=== PATIENT | male | born 1960 | race Caucasian/White ===

== ENCOUNTER 2016-09-03 18:22 | Observation (INO) | payer OTHER ==
[~2016-09-03] VITALS: Ht 160 cm; Wt 64.9 kg
[2016-09-03 18:24] VITALS: Ht 160 cm; Wt 64.9 kg
--- NOTE | 2016-09-03 19:16 | ERA ---
ER Documentation Chief Complaint Date/Time DATE: 09/03/16 TIME: 19:15 Chief Complaint PALPITAIONS AFTER TAKING PREDNISOLONE HPI 56-year-old male with a history of hypertension presents with palpitations and chest pain 1 day. Patient reports intermittent chest pain over the last day lasting 5-10 minutes in the center of his chest nonradiating. The pain is nonexertional, nonpleuritic, non-tearing, non-positional. It is associated with mild dyspnea last seconds. No associated nausea, vomiting, diaphoresis. He reports feeling some associated palpitations over the last day and it is what ultimately brought him in. He reports being on prednisone for allergic rhinitis. Denies any drug use. No recent travel or DVT risk factors. ROS All systems reviewed and are negative except as per history of present illness. Medications Home Meds Reported Medications Methylprednisolone* (Methylpred*) 4 Mg/Dose-Pack Tab.ds.pk, 8 MG PO DAILY, PACKET 09/03/16 Metoprolol Tartrate* (Lopressor*) 50 Mg Tab, 50 MG PO BID, #60 TAB 09/03/16 Discontinued Reported Medications Methylprednisolone* (Medrol*) 4 Mg Tab, 4 MG PO, TAB 09/03/16 Allergies Allergies: Coded Allergies: No Known Allergy (Unverified , 09/03/16) PMhx/Soc HTN Medical and Surgical Hx: pt denies Surgical Hx History of Surgery: No Anesthesia Reaction: No Hx Neurological Disorder: No Hx Respiratory Disorders: No Hx Cardiac Disorders: No Hx Psychiatric Problems: No Hx Miscellaneous Medical Probl: No Hx Alcohol Use: No Hx Substance Use: No Hx Tobacco Use: No Smoking Status: Never smoker FmHx Family History: No coronary disease, No diabetes, No other Physical Exam Vitals Vital Signs Date Time Temp Pulse Resp B/P Pulse Ox O2 Delivery O2 Flow Rate FiO2 09/03/16 19:36 98.1 115 20 170/98 99 Room Air 09/03/16 18:24 98.1 123 20 173/97 99 Physical Exam General: alert, well appearing, and in no distress, AOx4. normal pulse oximetry. Head: Atraumatic, normocephalic Eyes: pupils equal and reactive, extraocular eye movements intact, sclera anicteric. Ears: bilateral TM's and external ear canals normal. Nose: normal and patent, no erythema, discharge or polyps. Oropharynx: moist mucous membranes, pharynx normal without lesions. Neck: supple, no significant adenopathy. Heart: rapid regular rate, normal S1, S2, no murmurs, rubs, clicks or gallops. Peripheral pulses: normal Lungs: clear to auscultation, no wheezes, rales or rhonchi, symmetric air entry and normal work of breathing. Abdomen: soft, nontender, nondistended, no masses or organomegaly Extremities: no joint tenderness, deformity or swelling. Skin: normal coloration and turgor, no rashes, no suspicious skin lesions noted. Neurologic: Alert, moving all extremities symmetrically x 4, sensation grossly intact, no gross deficits Result Diagram: 09/03/16200909/03/162009 Results 24 hrs Laboratory Tests Test 09/03/16 20:10 Activated Partial Thromboplast Time 30.5Sec Alanine Aminotransferase (ALT/SGPT) 142IU/L Albumin 4.6g/dl Albumin/Globulin Ratio 1.43 Alkaline Phosphatase 115IU/L Anion Gap 19 Aspartate Amino Transf (AST/SGOT) 66IU/L Basophils # 0.010^3/ul Basophils % 0.1% Blood Urea Nitrogen 10mg/dl Calcium Level 9.6mg/dl Carbon Dioxide Level 24mmol/L Chloride Level 105mmol/L Creatinine 0.78mg/dl D-Dimer < 220.00ng/ml D-Dimer Comment Direct Bilirubin 0.00mg/dl Eosinophils # 0.010^3/ul Eosinophils % 0.0% Globulin 3.20g/dl Glucose Level 138mg/dl Hematocrit 46.3% Hemoglobin 15.8g/dl Indirect Bilirubin 0.3mg/dl Lymphocytes # 1.010^3/ul Lymphocytes % 11.3% Mean Corpuscular Hemoglobin 29.2pg Mean Corpuscular Hemoglobin Concent 34.2g/dl Mean Corpuscular Volume 85.4fl Mean Platelet Volume 9.4fl Mix PT Patient Plasma Immediate Pending Mix PTT Normal Plasma Immediate Pending Monocytes # 0.310^3/ul Monocytes % 4.0% Neutrophils # 7.310^3/ul Neutrophils % 84.6% Nucleated Red Blood Cells # 0.010^3/ul Nucleated Red Blood Cells % 0.0/100WBC PT Mixing Studies Interpretation Pending Platelet Count 58522^3/UL Potassium Level 4.3mmol/L Prothrombin Time 13.0Sec Red Blood Count 5.4210^6/ul Red Cell Distribution Width 13.9% Sodium Level 144mmol/L Total Bilirubin 0.3mg/dl Total Protein 7.8g/dl Troponin I 0.059ng/ml White Blood Count 8.610^3/ul Current Medications Medications (Trade) Dose Ordered Sig/Timothy Route PRN Reason Start Time Stop Time Status Last Admin Dose Admin Sodium Chloride (NS) 1,000 ml @ 1,000 mls/hr Q1H ONCE IV 09/03/16 20:00 09/03/16 20:59 DC 09/03/16 20:04 Aspirin (Aspirin) 324 mg ONCE ONCE PO 09/03/16 22:30 09/03/16 22:31 Nitroglycerin (Nitroglycerin (Sl Tab) 0.4 Mg) 1 tab ONCE ONCE SL 09/03/16 22:30 09/03/16 22:31 Procedures/MDM EKG, MONITORS, & DIAGNOSTIC IMAGING: Sinus tach at [address] elevations slight anterior ST ST depressions less than 1 mm in V2, V3, V4 with upright t-waves CXR: IMPRESSION: 1. Normal chest radiograph. LAB INTERPRETATION: Labs remarkable for trop 0.059, Negative D-dimer. ALT and AST elevations with normal ALP and tbili. MEDICAL DECISION MAKIN-year-old male with a history of hypertension presents with palpitations and chest pain 1 day of unclear etiology but with anterior ST depressions and indeterminate troponin suggestive of possible ACS. Patient does not meet current criteria for STEMI, even after posterior ECG was done, at this time will be admitted to telemetry for continued rule out and monitoring. Afebrile vital signs with persistent tachycardia but not improved with IV fluids or pain medication. Exam per note. Labs remarkable for indeterminate troponin negative d-dimer. Some nonspecific ALT and AST elevation but does not have an obstructive biliary picture. Patient low risk for PE and had a negative d- dimer. No clinical symptoms of heart failure. Patient denies any drug use. Chest x-ray unremarkable. He was given morphine for pain and aspirin as well as nitroglycerin with relief of his chest pain. Departure Condition: SANTOSH Collier MD Sep 03, 2016 19:16
[2016-09-03] MEDS ORDERED: METO-429 PO (19:32)
[2016-09-03] MEDS ORDERED: METH4TAB PO (19:36)
[2016-09-03] MEDS ORDERED: MED4DP PO (19:36)
[2016-09-03] MEDS ORDERED: SOD CHLORIDE 0.9% 1,000 ML IV ONE (20:00)
[2016-09-03 20:47] LABS: BASOPHILS % 0.1 % (0.0-2.0); HEMATOCRIT 46.3 % (42.0-52.0); HEMOGLOBIN 15.8 g/dl (14.0-18.0); LYMPHOCYTES % 11.3 % (15.0-51.0); MEAN CORPUSCULAR HEMOGLOBIN 29.2 pg (29.0-33.0); MEAN CORPUSCULAR HGB CONC 34.2 g/dl (32.0-37.0); MEAN CORPUSCULAR VOLUME 85.4 fl (82.0-101.0); MEAN PLATELET VOLUME 9.4 fl (7.4-10.4); MONOCYTE # 0.3 10^3/ul (0.3-0.9); NEUTROPHIL # 7.3 10^3/ul (1.6-7.5); NEUTROPHILS % 84.6 % (39.0-77.0); PARTIAL THROMBOPLASTIN TIME 30.5 Sec (25.0-35.0); PLATELET COUNT 231 10^3/UL (140-440); RED BLOOD COUNT 5.42 10^6/ul (4.70-6.10); RED CELL DISTRIBUTION WIDTH 13.9 % (11.5-14.5); UNCORRECTED WBC 8.6 10^3/ul (4.8-10.8); WHITE BLOOD COUNT 8.6 10^3/ul (4.8-10.8)
[2016-09-03 20:51] LABS: ALBUMIN 4.6 g/dl (3.3-4.9); POTASSIUM 4.3 mmol/L (3.5-5.1)
[2016-09-03 20:54] LABS: ALBUMIN/GLOBULIN RATIO 1.43; BILIRUBIN,INDIRECT 0.3 mg/dl (0-1.1); BILIRUBIN,TOTAL 0.3 mg/dl (0.2-1.3); CALCIUM 9.6 mg/dl (8.4-10.2); CREATININE 0.78 mg/dl (0.61-1.24); TOTAL PROTEIN 7.8 g/dl (6.1-8.1)
[2016-09-03 20:56] LABS: CONDITION 1
--- NOTE | 2016-09-03 21:01 | RADRPT ---
PROCEDURE: XR Chest. CLINICAL INDICATION: Chest pain. TECHNIQUE: Single frontal view. COMPARISON: None. FINDINGS: The lungs are clear. The heart size is normal. There is no pleural effusion. There is no pneumothorax. IMPRESSION: 1. Normal chest radiograph. RPTAT: QQ .Triston Butcher MD, Date Time Electronically viewed and signed by .Triston Butcher MD, on 09/03/2016 21:01 .R/
[2016-09-03 21:03] LABS: TROPONIN-I 0.059 ng/ml (0.00-0.12)
[2016-09-03 21:44] LABS: D-DIMER < 220.00 ng/ml (<460)
[2016-09-03] MEDS ORDERED: NITROGLYCERIN (SL) 0.4 MG TAB SL ONE (22:30)
[2016-09-03] MEDS ORDERED: ASPIRIN 81 MG TAB PO ONE (22:30)
[2016-09-03] MEDS ORDERED: NACL 0.9% 3 ML SYG IV SCH (23:00)
[2016-09-03] MEDS ORDERED: HYDROCODONE/APAP (5/325) TAB PO PRN (23:00)
[2016-09-03] MEDS ORDERED: DOCUSATE SODIUM 100 MG CAP PO PRN (23:00)
[2016-09-03] MEDS ORDERED: ZOLPIDEM 5 MG TAB PO PRN (23:00)
[2016-09-03] MEDS ORDERED: ONDANSETRON 4 MG TAB PO PRN (23:00)
[2016-09-03] MEDS ORDERED: ACETAMINOPHEN 325 MG TAB PO PRN (23:00)
[2016-09-03] MEDS: FAMOTIDINE 20 MG TAB PO SCH (23:23)
[2016-09-04] VITALS (7 sets, daily range): BP systolic 156–165; BP diastolic 64–79; PULSE 69–80; RESP 19; TEMP 98.1
[2016-09-04] MEDS: DEXTROSE 5%-0.45% NACL 1,000 ML IV SCH ×3 (00:20→15:39)
[2016-09-04 06:05] LABS: BASOPHILS % 0.3 % (0.0-2.0); EOSINOPHILS % 0.2 % (0.0-7.0); HEMATOCRIT 42.6 % (42.0-52.0); HEMOGLOBIN 14.4 g/dl (14.0-18.0); LYMPHOCYTES # 2.8 10^3/ul (0.8-2.9); LYMPHOCYTES % 22.3 % (15.0-51.0); MEAN CORPUSCULAR HGB CONC 33.8 g/dl (32.0-37.0); MEAN CORPUSCULAR VOLUME 85.6 fl (82.0-101.0); MEAN PLATELET VOLUME 9.2 fl (7.4-10.4); MONOCYTE # 1.3 10^3/ul (0.3-0.9); NEUTROPHIL # 8.4 10^3/ul (1.6-7.5); NEUTROPHILS % 67.2 % (39.0-77.0); PLATELET COUNT 230 10^3/UL (140-440); RED BLOOD COUNT 4.97 10^6/ul (4.70-6.10); RED CELL DISTRIBUTION WIDTH 13.9 % (11.5-14.5); UNCORRECTED WBC 12.6 10^3/ul (4.8-10.8); WHITE BLOOD COUNT 12.6 10^3/ul (4.8-10.8)
[2016-09-04 06:07] LABS: POTASSIUM 3.9 mmol/L (3.5-5.1)
[2016-09-04 06:10] LABS: CALCIUM 8.8 mg/dl (8.4-10.2); CREATININE 0.81 mg/dl (0.61-1.24)
[2016-09-04 06:12] LABS: CONDITION 1
[2016-09-04 06:22] LABS: TROPONIN-I 0.046 ng/ml (0.00-0.12)
[2016-09-04 07:42] LABS: THYROID STIMULATING HORMONE 3.67 MIU/L (0.465-4.680)
[2016-09-04] MEDS ORDERED: ENOXAPARIN 40 MG/0.4 ML SYG SC SCH (09:00)
[2016-09-04] MEDS ORDERED: ASPIRIN 81 MG TAB PO SCH (09:00)
[2016-09-04] MEDS: FAMOTIDINE 20 MG TAB PO SCH (09:13)
--- NOTE | 2016-09-04 10:54 | HP ---
Date/Time of Note Date/Time of Note DATE: 09/04/16 TIME: 10:38 Assessment/Plan VTE Prophylaxis VTE Prophylaxis Intervention: LMWH Lines/Catheters Urinary Cath still in place: No Assessment/Plan Assessment/Plan 56yo man with no previous cardiac history and a normal stress test two years ago. Developed sustained chest pain, radiating to the back and with mild transient dyspnea after taking a first dose of methylprednisolone for an ear problem. Atypical chest pain, not likely cardiac in origin. But he has had episodes of exertion-related pain. Other than the hypertension, he had no cardiac risk factors, including diabetes, smoking, rheumatic disease, or positive family history. Need to rule out cardiac ischemia. * Serial troponins negative so far * NPO after midnight * Discussed with Dr. Adilson Yao (cardiology), and planning Lexiscan this morning * Famotidine for GI prophylaxis * Lovenox for DVT prophylaxis * Full-Code Sun Briscoe MD PhD [phone] HPI/ROS Admit Date/Time Admit Date/Time Sep 03, 2016 at 22:56 Hx of Present Illness 56-year-old patient of Dr. Rogelio Jamison (listed as "Casey Mitchell" in our records ) who was feeling well until yesterday morning when he took his first dose of a Medrol dose-pack for two months of ear infection symptoms. Shortly afterward, he developed severe pain in the epigastric area, radiating to the back. He said the pain was non-pleuritic, but caused him some shortness of breath. He had about five hours of pain altogether, relieved by nitroglycerine tablets in the ER. He has had previous similar episodes, most recently about two months ago, and including some episodes when he was lifting heavy items at work. He is a retail warehouse supervisor. He has a history of hypertension, treated with metoprolol. But no smoking history. Had a previous stress test at [facility] about two years ago, thought to have been normal. Father of complications related to diabetes, but no heart issues. Six siblings and his mother are all healthy without any cardiac history. ROS No nausea, change in bowel habitus. PMH/Family/Social Social History Alcohol Use: rarely Smoking Status: Never smoker Exam/Review of Systems Vital Signs Vitals Vital Signs Date Time Temp Pulse Resp B/P Pulse Ox O2 Delivery O2 Flow Rate FiO2 1/15/17 09:37 72 09/04/16 08:50 97.9 19 162/64 96 Room Air Exam Constitutional: alert, oriented, well developed Psych: nl mood/affect, no complaints Head: atraumatic, normocephalic Eyes: EOMI, PERRL, nl conjunctiva, nl sclera ENMT: mucosa pink and moist Neck: non-tender, supple, No jvd, No masses, No nuchal rigidity, No thyromegaly Respiratory: clear to auscultation, normal air movement, No congested cough, No crackles/rales, No diminished breath sounds, No intercostal retraction, No labored breathing, No respirations, No wheezing Cardiovascular: nl pulses, regular rate and rhythm, No bruits, No diastolic murmur, No edema, No gallop, No irregular rhythm, No jugular venous distention (JVD), No murmurs/extra sounds, No rub, No systolic murmur Gastrointestinal: nl liver, spleen, non-tender, soft Genitourinary - Male: No CVA tenderness Musculoskeletal: joint tenderness, muscle tone, nl extremities to inspection, range of motion Extremities: normal pulses Neurological: INDUSTRIAL ENGINEERING ANALYST II-XII intact, nl mental status, nl speech, nl strength Skin: No diaphoresis, No ecchymosis, No laceration, No nl turgor, No puncture, No rash or lesions Lymph: nl lymph nodes Labs Result Diagram: 09/04/16 0520 09/04/16 0520 Medications Medications Current Medications Dextrose/Sodium Chloride (D5-1/2ns) 1,000 ml @ 75 mls/hr [id number] IV Last administered on 09/04/16 00:20; Admin Dose 75 MLS/HR; Start 09/03/16 at 22:51 Ondansetron HCl (Zofran Tab) 4 mg Q6H PRN PO NAUSEA AND/OR VOMITING; Start at 23:00 Aspirin (Aspirin) 81 mg DAILY PO Last administered on 09/04/16 09:13; Admin Dose 81 MG; Start 09/04/16 at 09:00 Acetaminophen (Tylenol Tab) 650 mg Q6H PRN PO PAIN LEVEL 1-3 OR FEVER Last administered on 09/04/16 09:20; Admin Dose 650 MG; Start 09/03/16 at 23:00 Acetaminophen/ Hydrocodone Bitart ([place] (5/325)) 1 tab Q6H PRN PO PAIN LEVEL 4 -6; Start 09/03/16 at 23:00 Zolpidem Tartrate (Ambien) 5 mg QHS PRN PO INSOMNIA; Start 09/03/16 at 23:00 Docusate Sodium (Colace) 100 mg Q12H PRN PO CONSTIPATION; Start 09/03/16 at 23: 00 Famotidine (Pepcid) 20 mg Q12 PO Last administered on 09/04/16 09:13; Admin Dose 20 MG; Start 09/03/16 at 23:00 Enoxaparin Sodium (Lovenox) 40 mg DAILY SC Last administered on 09/04/16 09:14 ; Admin Dose 40 MG; Start 09/04/16 at 09:00 JOEY BRISCOE M.D. Sep 04, 2016 10:50
[2016-09-04] MEDS ORDERED: REGADENOSON 0.4 MG/5 ML SYG ONE (12:26)
[2016-09-04] MEDS ORDERED: hydrALAzine 20 MG INJ IV PRN (13:30)
[2016-09-04] MEDS ORDERED: NITROGLYCERIN (SL) 0.4 MG TAB SL PRN (13:30)
--- NOTE | 2016-09-04 14:19 | RADRPT ---
PROCEDURE: Lexiscan myocardial perfusion study CLINICAL INDICATION: 56 -year-old patient complaining of chest pain. TECHNIQUE: Lexiscan 0.4 mg intravenously separate acquisition gated myocardial perfusion SPECT usi ng Tc 99m Myoview 32.0 mCi intravenously at stress and Tc-99m Myoview, 10.8 mCi intravenously at res t was performed using the rest/stress sequence. Poststress Myoview SPECT images were obtained in th e supine position. COMPARISON: No prior studies. FINDINGS: Perfusion images reveal no evidence of perfusion defects. Lexiscan post stress gated SPECT images demonstrate no wall motion abnormalities. IMPRESSION: 1. No evidence of perfusion defects. 2. No wall motion abnormalities. 3. The left ventricle ejection fraction at stress is greater than 70%. RPTAT: QQ .Monica Seth MD, MD Date Time Electronically viewed and signed by .Monica Seth MD, MD on 09/04/2016 14:19 .L/
--- NOTE | 2016-09-04 15:32 | RADRPT ---
Echocardiogram Report Patient Name: CEASAR PHILLIPS Gender: Male Date: 1960 Study Date: 04-Sep-2016 Acid Correction Hand: Gilbert [facility] Location: 5539 Ref. Physician: CLAUDETTE YAO Quality: Adequate Procedures: Transthoracic echocardiogram with complete 2D, M-Mode, and doppler examination. Indications: Chest Pain. 2D/M Mode Doppler Measurement Value Normal Ranges Measurement Value Normal Ranges LVIDd 2D 4.2 3.5 - 5.6 cm AV Peak Brant 1.5 m/sec LVIDs 2D 2.9 2.1 - 4.1 cm AV Peak PG 9.0 mmHg FS 2D 30.5 % LVOT Peak Brant 1.4 m/sec LVPWd 2D 1.3 0.6 - 1.1 cm LVOT Peak PG 8.0 mmHg IVSd 2D 1.3 0.6 - 1.1 cm MV E Peak Brant 0.9 m/sec IVS/LVPW 2D 1.0 MV A Peak Brant 1.1 m/sec AoR Diam 2D 2.9 2.0 - 3.7 cm MV E/A 0.9 LA/Ao 2D 1 0 - 1 MV Decel Time 215 msec EDV 2D 72.5 cm3 MV E/A 0.9 ESV 2D 24.4 cm3 LA Dimen 2D 3.1 2.3 - 4.0 cm Findings Left Ventricle: Normal left ventricular systolic function. Normal left ventricular cavity size. Left ventricular wall thickness upper limits of normal. Ejection fraction is visually estimated at 6065 %. Tissue Doppler/Mitral Doppler indices are consistent with impaired relaxation (Stage I diastolic dysfunction). Right Ventricle: Normal right ventricular size. Normal right ventricular systolic function. Left Atrium: The left atrium is normal in size. Right Atrium: The right atrium is normal in size. Mitral Valve: Normal appearance and function of the mitral valve with trace physiologic regurgitation. Aortic Valve: No significant aortic stenosis or insufficiency. Normal trileaflet aortic valve structure. Tricuspid Valve: Normal appearance and function of the tricuspid valve with trace physiologic regurgitation. Pericardium: Normal pericardium with no significant pericardial effusion. Aorta: Normal aortic root. IVC: Normal size and normal respiratory collapse consistent with normal right atrial pressure. Conclusions 1.Normal left ventricular systolic function. Normal left ventricular cavity size. Left ventricular wall thickness upper limits of normal. Ejection fraction is visually estimated at 60-65 %. Tissue Doppler/Mitral Doppler indices are consistent with impaired relaxation (Stage I diastolic dysfunction). 2.Normal appearance and function of the mitral valve with trace physiologic regurgitation. 3.Normal appearance and function of the tricuspid valve with trace physiologic regurgitation. Electronically Signed By: Claudette Yao 04-Sep-2016 15:31:21 -0800 Patient Name: CEASAR PHILLIPS Study Date: 04-Sep-2016 [id number]
--- NOTE | 2016-09-04 16:53 | CONS ---
DATE OF ADMISSION: 09/03/2016 DATE OF CONSULTATION: 09/04/2016 REASON FOR CONSULTATION: Chest pain, assess for ischemia. Assess for acute coronary syndrome. REQUESTING PHYSICIAN: Dr. Luis Felipe M.D. HISTORY OF PRESENT ILLNESS: Mr. Moore is a 56-year-old male who has a history of hypertension a nd recent ear problem for which he takes steroids, who presents with complaints of substernal chest pain described as a burning to pressure-like pain. 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 The patient subsequently pres ented to the emergency department where upon arrival, temperature of 98.1, blood pressure 173/97, pu lse 123, respiratory rate 20, saturating 99%. The patient's EKG revealed sinus tachycardia at 127 with normal axis, normal intervals, borderline a nterior R-wave progression and lateral biphasic T-wave abnormalities. The patient's labs were notab le for white count of 8.6, hemoglobin 10.8, platelet count 231, the sodium 144, potassium 4.3, creat inine 0.7, BUN of 10, and a TSH 3.67. Troponin negative. The patient's chest x-ray revealed no acu te cardiopulmonary abnormalities. The patient was subsequently admitted to the floor and since admi tted to floor has had a second troponin return negative. PAST MEDICAL HISTORY: As above in HPI. MEDICATIONS CURRENTLY IN HOSPITAL 1. Aspirin 81 mg daily. 2. Lopressor 50 mg b.i.d. 3. Lovenox 40 subq daily. 4. Zofran p.r.n. 5. Tylenol p.r.n. 6. [place] p.r.n. 7. Colace p.r.n. 8. Pepcid 20 mg p.o. q.12h. 9. IV fluid hydration at 75 mL an hour. ALLERGIES: NO KNOWN DRUG ALLERGIES. SOCIAL HISTORY: No tobacco, ETOH or illicit drug use. FAMILY HISTORY: No history of sudden cardiac or early CAD. REVIEW OF SYSTEMS: As above in HPI. CONSTITUTIONAL: No fevers, chills. PULMONARY: No shortness of breath. CARDIOVASCULAR: Intermittent chest pain. GASTROINTESTINAL: No vomiting. GENITOURINARY: No hematuria. MUSCULOSKELETAL: Degenerative disease. PSYCHIATRIC: No documented psychiatric history. NEUROLOGIC: No documented CVA. PHYSICAL EXAMINATION VITAL SIGNS: Temperature 98.1, blood pressure most recently 162/64, pulse 79, respiratory rate 19, satting 98%. GENERAL: The patient is alert, awake and denies ongoing chest pain at this time. NECK: JVP approximately 8 to 9 cm of water. CHEST: Fair air movement throughout. HEART: Regular rate and rhythm. Normal S1, S2, I/ systolic murmur, nondisplaced PMI. ABDOMEN: Positive bowel sounds, soft. EXTREMITIES: No edema, 1+ pulses bilaterally, posterior tibial. LABORATORY DATA: As above in HPI with most recently from today, sodium 146, potassium 3.9, creatini ne 0.8, BUN 13. TSH of 3.6. White blood cell count 12.6, hemoglobin 14.4, platelet count 230. Tro ponin negative x2. IMAGING STUDIES: As above in HPI. No further imaging studies for my review at this time. ECG: As above in HPI. No further electrocardiograms for my review at this time. IMPRESSION: 1. Chest pain, assess for acute coronary syndrome. 2. Hypertension, currently uncontrolled and has not received baseline oral antihypertensives this m orning. 3. Abnormal electrocardiogram, assess for acute coronary syndrome. 4. Hypernatremia 5. Leukocytosis. RECOMMENDATIONS: 1. At this time, would maintain the patient on telemetry monitoring to follow rhythm and rate close ly. 2. Continue the patient's aspirin for prophylaxis for cardiovascular events. 3. Continue the patient's current beta sana. Follow blood pressure after receiving. 4. The patient will undergo Lexiscan Cardiolite stress test today in order to assess for possibilit y of ischemia lending to symptoms of chest pain and subsequent admit to the hospital. 5. Will give patient p.r.n. sublingual nitroglycerin for recurrent episodes of chest pain in the [facility] and will check a 2D echo on the patient to assess ejection fraction, wall motion, rule out an y major valve abnormalities as well as a fasting lipid panel for general risk stratification and kacy l initiate as needed. Thank you for allowing me to take part in the care of this patient. I will continue to follow along very closely with you with further recommendations to be made as the patient progresses through his inpatient hospital clinical course. Dictated By: CLAUDETTE MORALES/JV Conf#: [id number] DID#: [id number] CC: JOEY MARTINEZ MD;*End*
--- NOTE | 2016-09-04 17:08 | OPR ---
DATE OF OPERATION: 09/04/2016 PROCEDURE NAME: Lexiscan Cardiolite stress test. REASON FOR STRESS TESTING: Chest pain, assess for ischemia. BASELINE VITAL SIGNS: Electrocardiogram: Pulse 75, blood pressure 177/83. Electrocardiogram revea led normal sinus rhythm, rate of 75, normal axis, normal intervals with anterior T-wave inversion. PROCEDURE: The patient underwent standard Lexiscan infusion protocol over 10 seconds followed by ra diolabeled tracer. The patient's test was stopped due to completion of protocol. Maximal achieved blood pressure during the test 179/71. Maximum heart rate during the test 123. ELECTROCARDIOGRAM FINDINGS: During Lexiscan infusion, the patient developed biphasic T-wave abnorma lities to 0.[address] depressions in the inferior and anterolateral leads, which returned to normal du ring recovery. SYMPTOMS: The patient had complaints of mild chest pain during stress test that resolved in recover y. IMPRESSION: 1. Lexiscan induced ST and T-wave changes from baseline abnormalities that are suggestive, but nond iagnostic, for cardiac ischemia. 2. Complaints of chest pain and shortness breath during stress test that resolved in recovery. 3. No documented premature ventricular contractions during stress test. 4. Report of nuclear images to follow in separate dictation. Dictated By: CLAUDETTE MORALES/JV Conf#: [id number] DID#: [id number] CC: JOEY MARTINEZ MD;*EndCC*
--- NOTE | 2016-09-04 17:29 | PDOCDIS ---
Discharge Instructions DIAGNOSIS Discharge Diagnosis: Non-cardiac chest pain CONDITION Patient Condition: Good HOME CARE INSTRUCTIONS: Diet Instructions: 2gm Na ACTIVITY: Activity Restrictions: Slowly Increase Activity FOLLOW UP/APPOINTMENTS Appointments PCP in the next week JOEY MARTINEZ M.D. Sep 04, 2016 17:29
[2016-09-04] MEDS ORDERED: FAMO20TA18 PO (17:30)
[2016-09-04] MEDS ORDERED: METOPROLOL 50 MG TAB PO SCH (21:00)
== END 2016-09-04 18:24 | disposition home or self-care (01) ==
LOC: E/R 18:22 → MS4 22:56
PROVIDERS: ADMIT Internal Medicine; ATTEND Internal Medicine
DX: R07.89 Other chest pain (principal); I10 Essential (primary) hypertension; E87.0 Hyperosmolality and hypernatremia; D72.829 Elevated white blood cell count, unspecified; R94.31 Abnormal electrocardiogram [ECG] [EKG]; Z79.82 Long term (current) use of aspirin
CPT/HCPCS: 71010; 78452; 80048; 80053; 84443; 84484; 85025; 85335; 85378; 93005; 93017; 93306; 99217; 99285; A9500; A9505; J0360; J1650; J2785; J7030; J7042; G0378